=== PATIENT | male | born 1995 | race Two or more races ===

== ENCOUNTER 2019-05-05 21:12 | Emergency (ER) | payer OTHER ==
[2019-05-05] VITALS (8 sets, daily range): BP systolic 141–169; BP diastolic 68–88
[~2019-05-05] VITALS: Ht 170.2 cm; Wt 70.3 kg
[~2019-05-05 21:12] MED LIST: NKM
[2019-05-05] MEDS ORDERED: Morphine Sulfate 4mg/ml Inj (IV USE ONLY) IVP ONE (21:15)
[2019-05-05] MEDS ORDERED: Morphine Sulfate 4mg/ml Inj (IV USE ONLY) ONE (21:21)
--- NOTE | 2019-05-05 21:28 | NUR ---
ED Nurse Note: Left shoulder pain playing soccer, just RN [facility]. Fetanyl 100mcg given in the field. Pt is AO x 4times, current crying for pain. ERMD seen Pt at bedside.
--- NOTE | 2019-05-05 21:30 | NUR ---
ED Nurse Note: X ray at bedside.
--- NOTE | 2019-05-05 21:30 | Emergency Room Report ---
History of Present Illness General Chief Complaint: Upper Extremity Injury Source: Patient Present Illness HPI Patient is a 24-year-old male who presented after increased left upper extremity pain after injury while playing soccer. Patient reports being struck to the back. He reports having persistent pain since the injury. Pain is worse with movement. He reports having prior shoulder dislocation. Allergies: Coded Allergies: No Known Allergies (Unverified , 05/05/19) Patient History Past Medical History: see triage record Reviewed Nursing Documentation: PMH: Agreed; PSxH: Agreed Nursing Documentation-PMH Past Medical History: No Stated History Review of Systems All Other Systems: negative except mentioned in HPI Physical Exam Vital Signs Date Time Temp Pulse Resp B/P (MAP) Pulse Ox O2 Delivery O2 Flow Rate FiO2 05/05/19 21:07 98.2 88 16 158/52 (87) 98 Room Air Sp02 EP Interpretation: reviewed, normal General Appearance: normal inspection, well appearing, no apparent distress, alert, GCS 15 Head: atraumatic ENT: normal ENT inspection, hearing grossly normal, normal voice Neck: normal inspection, full range of motion, supple, no bony tend Respiratory: normal inspection, lungs clear, normal breath sounds, no respiratory distress, no retraction, no wheezing Cardiovascular #1: regular rate, rhythm, no edema Gastrointestinal: normal inspection, normal bowel sounds, non tender, soft, no guarding, no hernia Genitourinary: no CVA tenderness Musculoskeletal: normal inspection, back normal, normal range of motion Neurologic: normal inspection, alert, oriented x3, responsive, wearing apparel shaker III-XII nml as tested, speech normal Psychiatric: normal inspection, judgement/insight normal, mood/affect normal Procedures Procedural Sedation Consent: Emergent Airway Assessment (Malampati): I Heart: normal Lungs: normal Abdomen: normal Extremities: abnormal - Location left shoulder Procedures/Plans: Closed Reduction Plan for Moderate Sedation: Propofol ASA Score: I Procedure Narrative Patient was given successive 15 mg aliquots of propofol until adequately sedated. Reduction was subsequently performed. Patient's tolerated reduction well. Mental Status: Awake Respiration: Unlabored Skin Condition: WNL Abdomen: WNL Nausea: NO Vomiting: NO Medical Decision Making Diagnostic Impression: Primary Impression: Shoulder dislocation ER Course Patient presented for shoulder pain. Differential diagnosis include was not limited to fracture, dislocation, contusion, among others. Because of complexity of patient's case imaging studies were ordered.Patient was noted to have a shoulder dislocation per radiology reading. Patient's shoulder patient given morphine for pain. He was consented for sedation for shoulder reduction. Patient's shoulder was subsequently reduced with axial traction. Patient tolerated this well. Patient was awake and alert after reduction. Last Vital Signs Date Time Temp Pulse Resp B/P (MAP) Pulse Ox O2 Delivery O2 Flow Rate FiO2 05/05/19 21:07 98.2 88 16 158/52 (87) 98 Room Air Scripts Hydrocodone Bit/Acetaminophen 5-325* (NORCO 5-325*) 1 Each Tablet 1 TAB ORAL Q6H PRN for For Pain, #10 TAB 0 Refills Prov: Duke Griffin MD 05/05/19 Ibuprofen* (MOTRIN*) 600 Mg Tablet 600 MG ORAL Q8H PRN for For Pain, #20 TAB 0 Refills Prov: Duke Griffin MD 05/05/19 Duke Griffin MD May 05, 2019 21:30
[2019-05-05] MEDS ORDERED: Ketorolac 30mg Inj IV ONE (21:45)
[2019-05-05] MEDS ORDERED: Propofol 200mg/20ml IV ONE ×3 (22:45→23:00)
--- NOTE | 2019-05-05 22:57 | NUR ---
ED Nurse Note: Propofol 100mg IVP given by ERMD, Pt sedated and readjust the L shoulder joint. Pt VSS, on 2L N/C no distress.
--- NOTE | 2019-05-05 23:00 | NUR ---
ED Nurse Note: Relocate L shoulder joint by ERMD, Pt VSS, on 2L N/C no distress. Will confirm by X ray.
[2019-05-05] MEDS ORDERED: NORCO 5-325 TA1 EACH ORAL (23:07)
[2019-05-05] MEDS ORDERED: IBUPROFEN600 MG ORAL (23:07)
[2019-05-06] VITALS: BP 140/80
[2019-05-06 00:30] VITALS: BP 138/83
--- NOTE | 2019-05-06 00:30 | NUR ---
ER DISCHARGE NOTE: Patient is cleared to be discharged per ERMD, pt is aox4, on room air, with stable vital signs. pt was given dc and prescription instructions, pt was able to verbalize understanding, pt id band and iv site removed without complications. pt is able to ambulate with steady gait with girlfriend. pt took all belongings.
--- NOTE | 2019-05-06 10:55 | Diagnostic Imaging Report ---
Indication: Sports injury, pain, status post fall Technique: 3 views of the left shoulder Comparison: none Findings: Shoulder is is abducted. There appears to be anterior and inferior dislocation. No definite associated fracture. Impression: Positive for anterior/inferior shoulder dislocation This agrees with the preliminary interpretation provided overnight by [facility] teleradiology service.
--- NOTE | 2019-05-06 12:57 | Diagnostic Imaging Report ---
Indication: Pain, post reduction Technique: 2 views of the left shoulder Comparison: none Findings: Interim reduction of previously demonstrated anterior left shoulder dislocation. No definite fracture deformity demonstrated. Impression: Interim successful reduction of previously demonstrated left shoulder dislocation
== END 2019-05-06 05:44 | disposition home or self-care (01) ==
LOC: EDBD 21:12 → EMR 21:22
DX: S43.005A Unspecified dislocation of left shoulder joint, initial encounter (principal); X58.XXXA Exposure to other specified factors, initial encounter; Y93.66 Activity, soccer; Y92.9 Unspecified place or not applicable
CPT/HCPCS: 23650; 73020; 73030; 96374; 96375; 99284; J1885; J2270; J2405; J2704